=== PATIENT | male | born 1965 | race African-American/Black ===

== ENCOUNTER 2018-10-26 07:27 | Emergency (ER) | payer MEDICARE, MEDICAID ==
[~2018-10-26] VITALS: Ht 185.4 cm; Wt 158.4 kg
[~2018-10-26 07:27] MED LIST: LISI30TA
[2018-10-26 07:30] VITALS: BP 163/93
--- NOTE | 2018-10-26 07:37 | NUR ---
pt ambulates to bed 11
--- NOTE | 2018-10-26 07:40 | NUR ---
53 yo m bib self w/ c/o "bump" noted to right arm 3 weeks ago w/ pain and 2+ pitting edema. pt states the pain is 9/10. no injury. cms intact. aaox4, gcs 15. + swelling hx DM, HTN, gout, arthritis, sleep apnea, obesity, bl knee replacement, testicular torsion, carpal tunnel surgery right side rx allopurinol, metformin, ibuprofen 800mg, norco, gabapentin, lisinopril, vitD, a "statin"
[2018-10-26] MEDS ORDERED: NACL 0.9% 1,000 ML IV SCH (07:55)
[2018-10-26] MEDS ORDERED: CLINDAMYCIN 900 MG in DEXTROSE 5% 100 ML IV ONE (07:55)
[2018-10-26] MEDS ORDERED: KETOROLAC 30 MG/ML VIAL IVP ONE (07:55)
[2018-10-26] MEDS ORDERED: CLINDAMYCIN 900 MG/6 ML VIAL IV ONE (08:19)
[2018-10-26 08:32] LABS: BASOPHILS % (AUTO) 0.4 % (0.0-2.0); EOSINOPHILS # (AUTO) 0.1 K/uL (0-0.4); HEMATOCRIT 39.8 % (36-52); HEMOGLOBIN 12.7 g/dL (12.0-18.0); LYMPHOCYTES # (AUTO) 2.3 K/uL (2.0-11.5); LYMPHOCYTES % (AUTO) 29.4 % (20.5-51.1); MEAN CORPUSCULAR HEMOGLOBIN 26 pg (27-31); MEAN CORPUSCULAR HGB CONC 32 g/dL (33-37); MEAN CORPUSCULAR VOLUME 82.4 fL (80-94); MONOCYTES # (AUTO) 0.6 K/uL (0.8-1.0); MONOCYTES % (AUTO) 7.6 % (1.7-9.3); NEUTROPHILS # (AUTO) 4.9 K/uL (1.8-7.7); NEUTROPHILS % (AUTO) 61.6 % (42.2-75.2); PLATELET COUNT (AUTO) 273 K/uL (140-450); RED BLOOD CELL COUNT(AUTO) 4.82 MIL/uL (4.20-6.10); RED CELL DISTRIBUTION WIDTH 13.3 % (11.6-13.7); WHITE BLOOD COUNT (AUTO) 7.9 K/uL (4.8-10.8)
[2018-10-26 08:56] LABS: PROTHROMBIN TIME 10.3 secs (10.8-13.4)
[2018-10-26 08:58] LABS: CARBON DIOXIDE 29.7 mmol/L (21-32); CREATININE 0.9 mg/dL (0.7-1.3); POTASSIUM 3.7 mmol/L (3.5-5.1)
[2018-10-26 09:03] LABS: ALBUMIN 3.7 g/dL (3.4-5.0); TOTAL BILIRUBIN 0.6 mg/dL (0.0-1.0)
[2018-10-26 10:25] VITALS: BP 143/73
--- NOTE | 2018-10-26 10:25 | NUR ---
Patient discharged with v/s stable. Written and verbal after care instructions given and explained. Patient alert, oriented and verbalized understanding of instructions. Ambulatory with steady gait. All questions addressed prior to discharge. ID band removed. Patient advised to follow up with PMD. Rx of Motrin, Bactrim, Clindamycin given. Patient educated on indication of medication including possible reaction and side effects. Opportunity to ask questions provided and answered.
== END 2018-10-26 10:25 | disposition home or self-care (01) ==
LOC: MED 07:27
DX: L03.114 Cellulitis of left upper limb (principal); E11.9 Type 2 diabetes mellitus without complications; I10 Essential (primary) hypertension; Z98.890 Other specified postprocedural states; Z79.899 Other long term (current) drug therapy
CPT/HCPCS: 36415; 71045; 80053; 82948; 83605; 84550; 85025; 85610; 85730; 87040; 96365; 96375; 99284; J1885; J3490; J7030; Q0092

== ENCOUNTER 2020-04-17 07:33 | Emergency (ER) | payer MEDICARE, MEDICAID ==
[~2020-04-17] VITALS: Ht 175.3 cm; Wt 154.2 kg
[2020-04-17 07:34] VITALS: BP 150/89
--- NOTE | 2020-04-17 07:38 | NUR ---
PT TAKEN TO BED 7 VIA W/C.
--- NOTE | 2020-04-17 07:43 | NUR ---
54 y/o male from home c/o lt ankle pain x 5 days. Pt denies trauma/injury to ankle. States increased swelling to ankle. Unable to ambulate at this time. 8/10 pulsating/constant pain. Has tried medication, ice, and elevation with no relief. Awake and alert, VSS medhx: gout, htn, dm, chronic back pain
--- NOTE | 2020-04-17 07:54 | NUR ---
Dr Verma at bedside examining pt
[2020-04-17] MEDS ORDERED: HYDROcodone/APAP 5/325 MG 1 TAB TAB PO ONE (08:00)
[2020-04-17] MEDS ORDERED: KETOROLAC 30 MG/ML VIAL IM ONE (08:00)
--- NOTE | 2020-04-17 08:00 | NUR ---
X-Ray at bedside.
--- NOTE | 2020-04-17 09:03 | NUR ---
Pt states decrease in pain at this time. VSS. 4/10 tolerable pain
[2020-04-17 09:18] VITALS: BP 140/82
--- NOTE | 2020-04-17 09:18 | NUR ---
Patient discharged with v/s stable. Written and verbal after care instructions given and explained. Patient alert, oriented and verbalized understanding of instructions. Wheel Chair Assisted with to car. All questions addressed prior to discharge. ID band removed. Patient advised to follow up with PMD. Rx of NAPROXEN given. Patient educated on indication of medication including possible reaction and side effects. Opportunity to ask questions provided and answered.
== END 2020-04-17 09:18 | disposition home or self-care (01) ==
LOC: MED 07:33
DX: M10.072 Idiopathic gout, left ankle and foot (principal); E11.9 Type 2 diabetes mellitus without complications; I10 Essential (primary) hypertension; Z79.899 Other long term (current) drug therapy
CPT/HCPCS: 73610; 96372; 99283; J1885; Q0092; 29515

== ENCOUNTER 2020-04-24 07:28 | Emergency (ER) | payer MEDICARE, MEDICAID ==
[~2020-04-24] VITALS: Ht 170.2 cm; Wt 154.2 kg
[2020-04-24 07:36] VITALS: BP 165/94
[2020-04-24] MEDS ORDERED: KETOROLAC 60 MG/2 ML VIAL IM ONE (07:45)
--- NOTE | 2020-04-24 07:45 | NUR ---
LEFT FOOT PAIN X 2 WEEKS. PT WITH HX OF GOUT. PER PT CHRONIC PAIN ON FOOT DUE TO GOUT FLARE UP. NO INJURIES NOTED. ROM/CMS WNL.
--- NOTE | 2020-04-24 07:54 | NUR ---
Dr. Ruiz is evaluating the patient at bedside.
[2020-04-24 08:14] VITALS: BP 158/89
--- NOTE | 2020-04-24 08:14 | NUR ---
Patient discharged with v/s stable. Written and verbal after care instructions given and explained. Patient alert, oriented and verbalized understanding of instructions. Ambulatory with steady gait. All questions addressed prior to discharge. ID band removed. Patient advised to follow up with PMD. Rx of [place] given. Patient educated on indication of medication including possible reaction and side effects. Opportunity to ask questions provided and answered.
== END 2020-04-24 08:14 | disposition home or self-care (01) ==
LOC: MED 07:28
DX: M10.9 Gout, unspecified (principal); E11.9 Type 2 diabetes mellitus without complications; I10 Essential (primary) hypertension; G89.29 Other chronic pain; M54.9 Dorsalgia, unspecified
CPT/HCPCS: 96372; 99283; J1885

== ENCOUNTER 2023-04-19 16:56 | Emergency (ER) | payer MEDICARE, MEDICAID ==
[~2023-04-19] VITALS: Ht 175.3 cm; Wt 149.7 kg
[2023-04-19 17:30] VITALS: BP 129/61; PULSE 59; RESP 20; TEMP 98; O2SAT 99
[2023-04-19] MEDS ORDERED: CEPH-588 PO (19:45)
[2023-04-19] MEDS ORDERED: IBUP-2213 PO (19:45)
--- NOTE | 2023-04-19 19:50 | NUR ---
Patient discharged with v/s stable. Written and verbal after care instructions given and explained. Patient alert, oriented and verbalized understanding of instructions. Ambulatory with steady gait. All questions addressed prior to discharge. ID band removed. Patient advised to follow up with PMD. Rx of KEFLEX AND IBUPROFEN given. Opportunity to ask questions provided and answered.
== END 2023-04-19 19:50 | disposition home or self-care (01) ==
LOC: MED 16:56
DX: M25.561 Pain in right knee (principal); I10 Essential (primary) hypertension; E11.9 Type 2 diabetes mellitus without complications; Z79.4 Long term (current) use of insulin; Z79.899 Other long term (current) drug therapy
CPT/HCPCS: 99283

== ENCOUNTER 2023-07-22 07:58 | Emergency (ER) | payer MEDICARE, OTHER ==
[~2023-07-22] VITALS: Ht 175.3 cm; Wt 147.0 kg
[~2023-07-22 07:58] MED LIST changes: +CEPH-588 PO; +IBUP-2213 PO
[2023-07-22 08:03] VITALS: BP 130/74; PULSE 56; RESP 18; TEMP 98; O2SAT 99
[2023-07-22 08:24] VITALS: O2SAT 99
[2023-07-22] MEDS ORDERED: LIDOCAINE 1% 500 MG/ 50 ML VIAL INJ ONE (08:45)
[2023-07-22] MEDS ORDERED: LIDOCAINE MPF 1% 5 ML ONE (08:53)
[2023-07-22] MEDS ORDERED: KETOROLAC 30 MG/ML VIAL IM ONE (09:05)
[2023-07-22 10:28] VITALS: BP 118/65; PULSE 99; RESP 16; TEMP 98; O2SAT 100
== END 2023-07-22 09:32 | disposition home or self-care (01) ==
LOC: MED 07:58
DX: M54.50 Low back pain, unspecified (principal); I10 Essential (primary) hypertension; E11.9 Type 2 diabetes mellitus without complications; Z72.89 Other problems related to lifestyle; Z79.4 Long term (current) use of insulin; Z79.899 Other long term (current) drug therapy
CPT/HCPCS: 20552; 96372; 99284; J1885; J2001